=== PATIENT | male | born 1975 | race Asian ===

== ENCOUNTER 2019-06-16 07:17 | Emergency (ER) | payer OTHER ==
[~2019-06-16] VITALS: Ht 167.6 cm; Wt 72.7 kg
[~2019-06-16 07:17] MED LIST: ALLO100T PO
[2019-06-16] MEDS ORDERED: PRED5 PO (07:27)
[2019-06-16] MEDS ORDERED: POVIDONE-IODINE 30 GM OINTMENT TP ONE (10:45)
[2019-06-16] MEDS ORDERED: LIDOCAINE 1% 10 ML VIAL INJ ONE (10:45)
[2019-06-16] MEDS ORDERED: POVIDONE-IODINE 10% 15 ML SOLUTION UD TP ONE (11:30)
[2019-06-16 13:04] VITALS: BP 135/85
== END 2019-06-16 13:08 | disposition home or self-care (01) ==
LOC: EMS 07:18
DX: M10.9 Gout, unspecified (principal); Z88.6 Allergy status to analgesic agent; Z79.899 Other long term (current) drug therapy
CPT/HCPCS: 20610; 36415; 73562; 84550; 99284; J3490